=== PATIENT | female | born 1970 | race Caucasian/White ===

== ENCOUNTER 2019-09-17 12:15 | Outpatient (CLI) | payer BC, SELFPAY ==
[2019-09-17 13:48] LABS: Basophils Absolute Auto 0.1 K/mm3 (0.0-0.1); Basophils Percent Auto 1.1 % (0.2-1.2); Eosinophils Absolute Auto 0.3 K/mm3 (0-0.3); Eosinophils Percent Auto 5.6 % (0-4.4); Hematocrit 37.7 % (37.0-47.0); Hemoglobin 12.4 g/dL (12.0-15.0); Immature Granulocyte Absolute 0.01 K/mm3 (0.00-0.031); Immature Granulocyte Percent A 0.2 % (0-0.5); Lymphocytes Absolute Auto 1.71 K/mm3 (0.9-3.2); Lymphocytes Percent Auto 38.3 % (18.3-44.2); Mean Corpuscular HGB Conc 32.9 g/dl (32-36); Mean Corpuscular Hemoglobin 31.7 pg (26-34); Mean Corpuscular Volume 96.4 fl (80-100); Mean Platelet Volume 9.7 fl (7.4-10.4); Monocytes Absolute Auto 0.4 K/mm3 (0.1-0.6); Monocytes Percent Auto 8.3 % (2.6-8.5); Neutrophils Absolute Auto 2.1 K/mm3 (1.3-6.7); Neutrophils Percent Auto 46.5 % (45.5-73.1); Platelet Count Result 268 k/mm3 (150-375); Red Blood Count 3.91 M/mm3 (4.2-5.4); Red Cell Distribution Width 12.7 % (11.5-14.5); White Blood Count 4.5 K/mm3 (4.5-10.0)
[2019-09-17 14:06] LABS: Alanine Aminotransferase 18 U/L (4-35); Albumin Level 4.1 g/dL (3.5-5.1); Alkaline Phosphatase 50 U/L (38-126); Aspartate Amino Transferase 26 U/L (14-36); Bilirubin,Total 0.4 mg/dL (0.2-1.3); Blood Urea Nitrogen 12 mg/dL (7-17); Calcium 8.7 mg/dL (8.4-10.2); Carbon Dioxide 27 mmol/L (22-30); Chloride 106 mmol/L (98-107); Cholesterol 182 mg/dL (0-200); Estimated Glomerular Filt Rate > 60; Glucose 98 mg/dL (65-105); HDL Direct 77 mg/dL; Potassium 3.9 mmol/L (3.4-5.0); Sodium 138 mmol/L (137-145); Triglycerides 46 mg/dL (<150)
[2019-09-17 14:19] LABS: LDL Cholesterol Direct 76 mg/dL
[2019-09-17 14:47] LABS: Free T4 Free Thyroxine 0.86 ng/mL (0.78-2.19)
[2019-09-17 15:13] LABS: Folic Acid 11.6 ng/mL (2.76->20)
[2019-09-20 04:24] LABS: Triiodothyronine T3 Free 2.8 pg/mL (2.3-4.2)
[2019-09-21 04:24] LABS: Thyroglobulin 6.8 ng/mL (2.8-40.9); Thyroglobulin Antibodies <1 IU/mL (<=1)
== END 2019-09-17 12:16 | disposition home or self-care (01) ==
PROVIDERS: PCP Internal Medicine; Visit Provider Internal Medicine
DX: R53.83 Other fatigue (principal); E03.9 Hypothyroidism, unspecified
CPT/HCPCS: 36415; 80053; 80061; 82607; 82746; 84432; 84439; 84443; 84481; 85025; 86800

== ENCOUNTER 2020-05-27 10:57 | Outpatient (CLI) | payer BC, SELFPAY ==
--- NOTE | ~2020-05-27 | XR_ITS ---
XR shoulder RT min 2V DATE: 05/27/2020 13:38 INDICATION: Right shoulder pain TECHNIQUE: 4 views COMPARISON: 06/23/2010 right shoulder FINDINGS: An approximately 8 mm sclerotic opacity of the right scapula near the base of the acromion process may be a bone island. No other osteosclerotic lesions are identified. Normal alignment at the acromioclavicular and glenohumeral joints. No fracture or dislocation, perios teal reaction or bone destruction or abnormal soft tissue calcification. IMPRESSION: 8 mm sclerotic opacity of scapula near base of acromion, possibly a bone island. If furth er evaluation is desired, consider CT evaluation and/or bone scan. Reviewed, dictated and finalized at location A. DESIGN ENGINEER IMPRESSION: 8 mm sclerotic opacity of scapula near base of acromion, possibly a bone island. If further evaluation is desired, consider CT evaluation and/or b one scan.
--- NOTE | ~2020-05-27 | XR_ITS ---
EXAMINATION: XR_CERV2-3V_CR DATE: 05/27/2020 13:38 INDICATION: Neck pain. TECHNIQUE: 3 views of cervical spine were obtained. COMPARISON: Cervical spine radiographs 06/23/2010 FINDINGS: There is kyphosis of cervical spine. Vertebral body heights are normal. There is mildly dec reased disc height at C5-C6. The facet joints are unremarkable. No central canal stenosis or preverte bral soft tissue swelling. IMPRESSION: 1. Mild cervical spondylosis. Reviewed, dictated and finalized at location A. ING COORDINATOR
== END 2020-05-27 10:58 | disposition home or self-care (01) ==
PROVIDERS: PCP Internal Medicine; Visit Provider Internal Medicine
DX: M25.511 Pain in right shoulder (principal); M54.2 Cervicalgia; M47.812 Spondylosis without myelopathy or radiculopathy, cervical region; M89.9 Disorder of bone, unspecified
CPT/HCPCS: 72040; 73030

== ENCOUNTER 2020-06-22 11:11 | Outpatient (CLI) | payer BC, SELFPAY ==
--- NOTE | ~2020-06-22 | XR_ITS ---
EXAMINATION: XR lg joint inject/asp w image DATE: 06/22/2020 11:51 INDICATION: Right frozen shoulder with pain and decreased range of motion TECHNIQUE: A time-out was performed to verify the patient's name, date of , and procedure to b e performed. The procedure including the risks, benefits, and alternatives was discussed with the pat ient. Risks discussed included bleeding and infection. The patient understood the risks and agreed to proceed. The skin overlying the rotator cuff interval of the right glenohumeral joint was prepped a nd draped in usual sterile fashion. Anesthetic was administered with 1% lidocaine subcutaneously. A 22 G needle was advanced under fluoroscopic guidance into the joint. Injection of 0.3 mL of Omnipaq ue 240 confirmed intra-articular position of the needle. Subsequently, injectate consisting of 5 mm of a 4:1 mixture of 1% lidocaine: 80 mg/mL Depo-Medrol for a total dose of 80 mg Depo-Medrol was inst illed. Washout of contrast was seen confirming intra-articular administration. The needle was removed and the entry site was cleaned and dressed. There were no immediate complications. Fluoroscopy expo sure time was 0.1 minutes. The total number of images was 1. FINDINGS: Real-time fluoroscopy demonstrates the needle in the right glenohumeral joint. Patient's pa in prior to procedure:09/09. Patient's pain following the procedure: 09/09. IMPRESSION: 1. Successful right glenohumeral joint injection of local anesthetic and steroid with no change in th e patient's presenting pain. Reviewed, dictated and finalized at location A. IMPRESSION: 1. Successful right glenohumeral joint injection of local anesthetic and steroi d with no change in the patient's presenting pain.
== END 2020-06-22 11:12 | disposition home or self-care (01) ==
PROVIDERS: PCP Internal Medicine; Visit Provider Orthopaedic Surgery
DX: M75.01 Adhesive capsulitis of right shoulder (principal)
CPT/HCPCS: 20610; 77002; J1040; Q9966

== ENCOUNTER 2020-06-24 14:45 | Outpatient (CLI) | payer BC, SELFPAY ==
--- NOTE | ~2020-06-24 | MM_ITS ---
EXAMINATION: MM screening [facility] BI w wendy HISTORY: Screening mammogram TECHNIQUE: Craniocaudal and mediolateral oblique 3-D tomosynthesis images were obtained and synthetic 2-D images were generated. CAD analysis was submitted and interpreted. COMPARISON: 07/16/2017, 03/01/2012 bilateral digital screening mammogram examinations BREAST PARENCHYMAL COMPOSITION: There are scattered areas of fibroglandular density. FINDINGS: There is a focal 4 mm asymmetry in the mid to upper outer left breast. Diagnostic left mamm ogram and left breast ultrasound examination are recommended. Otherwise there is no evidence of suspicious mass, calcification, or architectural distortion to sugg est malignancy in either breast. There has been no other suspicious interval change. IMPRESSION: 1. New asymmetric opacity in the mid to upper outer left breast 2. Diagnostic left mammogram and left breast ultrasound examination are recommended. BI-RADS Category 0: Incomplete: Needs additional imaging evaluation. Reviewed, dictated and finalized at location A. IMPRESSION: 1. New asymmetric opacity in the mid to upper outer left breast 2. Diagnostic left mammogram and left breast ultrasound examination are recomme nded. BI-RADS Category 0: Incomplete: Needs additional imaging evaluation.
== END 2020-06-24 14:46 | disposition home or self-care (01) ==
PROVIDERS: PCP Internal Medicine; Visit Provider Obstetrics & Gynecology
DX: Z12.31 Encounter for screening mammogram for malignant neoplasm of breast (principal); R92.8 Other abnormal and inconclusive findings on diagnostic imaging of breast
CPT/HCPCS: 77063; 77067

== ENCOUNTER 2020-07-23 11:00 | Outpatient (CLI) | payer BC, SELFPAY ==
--- NOTE | ~2020-07-23 | MMUS_ITS ---
EXAMINATION: MM diagnostic mammo unilat LT, US breast LT limited HISTORY: Left breast mass on screening mammogram TECHNIQUE: Additional 3-D tomosynthesis images of the left breast were performed and synthetic 2-D im ages were generated. CAD analysis was submitted and interpreted. High resolution limited left breast ultrasound was performed. COMPARISON: 06/24/2020, 07/16/2017, 03/01/2012 FINDINGS: MAMMOGRAPHIC FINDINGS: There is a 5 mm round, obscured, equal density mass in the middle/posterior third of the outer breast at the 3:00 location 7 cm from the nipple. No suspicious calcification or architectural distortion a re identified. ULTRASOUND: There is an 8 mm x 4 mm complex cystic and solid mass with posterior acoustic enhancement and no inte rnal vascularity at the 4:00 location 2 cm from the nipple likely reflect a cluster of microcysts. Th ere is an adjacent 5 mm x 3 mm hypoechoic mass with posterior acoustic enhancement, lobulated margins , and no internal vascularity. IMPRESSION: 1. Likely clustered microcysts and possible adjacent intramammary lymph node at the 4:00 location 2 c m from the nipple. 2. Recommend 6 month follow-up left diagnostic mammogram and ultrasound. BI-RADS category 3, probably benign findings. Reviewed, dictated and finalized at location A. IMPRESSION: 1. Likely clustered microcysts and possible adjacent intramammary lymph node at the 4:00 location 2 cm from the nipple. 2. Recommend 6 month follow-up left diagnostic mammogram and ultrasound. BI-RADS category 3, probably benign findings.
== END 2020-07-23 11:01 | disposition home or self-care (01) ==
LOC: ANHIMG 11:04
PROVIDERS: PCP Internal Medicine; Visit Provider Obstetrics & Gynecology
DX: R92.8 Other abnormal and inconclusive findings on diagnostic imaging of breast (principal)
CPT/HCPCS: 76642; 77065

== ENCOUNTER → 2021-04-06 15:23 | Outpatient (CLI) | payer BC, SELFPAY ==
--- NOTE | ~2021-04-06 | MR_ITS ---
EXAMINATION: MR shoulder RT wo con DATE: 04/06/2021 16:17 INDICATION: Right shoulder pain. TECHNIQUE: Magnetic resonance imaging (MRI) of the right shoulder was performed without intravenous c ontrast. Sequences included axial PD-weighted FS FSE, coronal oblique PD-weighted FS FSE and T2-weigh becky FS FSE, and sagittal oblique T2-weighted FS FSE and T1-weighted FSE. COMPARISON: Right shoulder radiographs 05/27/2020 FINDINGS: Coracoacromial arch: The acromion undersurface is curved in morphology (type II). There is mild acromial joint osteoarthri tis. There is mild subacromial/subdeltoid bursitis. Rotator cuff: There is mild supraspinatus and infraspinatus tendinopathy. Teres minor tendon is normal. Subscapular is tendon is normal. No tear. There is no asymmetric fatty atrophy of the rotator cuff muscle bellies . Biceps tendon and glenoid labrum: Biceps tendon is in bicipital groove. Intra-articular biceps tendon is normal. There is degeneration of glenoid labrum without well-defined tear. Fluid: There is a small glenohumeral joint effusion. Bones/cartilage: There is cartilage surface irregularity of glenoid and humeral head. IMPRESSION: 1. Mild rotator cuff tendinopathy. No tear. 2. Mild glenohumeral joint chondrosis. 3. Mild acromioclavicular joint osteoarthritis. 4. Mild subacromial/subdeltoid bursitis. 5. Small glenohumeral joint effusion. Reviewed, dictated and finalized at location A. TOR OPERATOR HELPER
== END ==
PROVIDERS: PCP Internal Medicine; Visit Provider Orthopaedic Surgery
DX: M25.511 Pain in right shoulder (principal); M75.102 Unspecified rotator cuff tear or rupture of left shoulder, not specified as traumatic; M94.8X1 Other specified disorders of cartilage, shoulder; M19.011 Primary osteoarthritis, right shoulder; M75.51 Bursitis of right shoulder; M25.411 Effusion, right shoulder
CPT/HCPCS: 73221

== ENCOUNTER 2021-04-15 10:12 | Outpatient (CLI) | payer BC, SELFPAY ==
--- NOTE | ~2021-04-15 | XR_ITS ---
EXAMINATION: XR lg joint inject/asp w image DATE: 04/15/2021 10:54 INDICATION: Recurrent right frozen shoulder TECHNIQUE: A time-out was performed to verify the patient's name, date of , and procedure to b e performed. The procedure including the risks, benefits, and alternatives was discussed with the pat ient. Risks discussed included bleeding and infection. The patient understood the risks and agreed to proceed. The skin overlying the rotator cuff interval of the right glenohumeral joint was prepped a nd draped in usual sterile fashion. Anesthetic was administered with 1% lidocaine subcutaneously. A 22 G needle was advanced under fluoroscopic guidance into the joint. Injection of 1 mL of Omnipaque 240 confirmed intra-articular position of the needle. Subsequently, injectate consisting of 5 mL of a 3:2 mixture of 1% lidocaine: 40 mg/mL Depo-Medrol for a total dose of 80 mg Depo-Medrol was instil led. Washout of contrast was seen confirming intra-articular administration. The needle was removed a nd the entry site was cleaned and dressed. There were no immediate complications. Fluoroscopy exposu re time was 0.1 minutes. The total number of images was 2. FINDINGS: Real-time fluoroscopy demonstrates the needle in the right glenohumeral joint. Patient's pa in prior to procedure:09/09. Patient's pain following the procedure: 11/09. IMPRESSION: 1. Right glenohumeral joint injection of local anesthetic and steroid with slight increase in the pat ient's presenting pain. Reviewed, dictated and finalized at location A. F PAYROLL CLERK IMPRESSION: 1. Right glenohumeral joint injection of local anesthetic and steroid with slig ht increase in the patient's presenting pain.
== END 2021-04-15 10:13 | disposition home or self-care (01) ==
LOC: ANHIMG 10:13
PROVIDERS: PCP Internal Medicine; Visit Provider Orthopaedic Surgery
DX: M75.01 Adhesive capsulitis of right shoulder (principal)
CPT/HCPCS: 20610; 77002; J1030; Q9966

== ENCOUNTER 2021-04-15 12:07 | Outpatient (CLI) | payer BC, SELFPAY ==
--- NOTE | ~2021-04-15 | US_ITS ---
Please refer to diagnostic mammogram report dated 04/15/2021 for details. Reviewed, dictated and finalized at location A. CH/LANGUAGE THERAPIST
--- NOTE | ~2021-04-15 | MM_ITS ---
EXAMINATION: MM diagnostic remi LT w wendy: High-resolution Limited left breast ultrasound HISTORY: Follow-up left breast mass. TECHNIQUE: Additional 3-D tomosynthesis images of the left breast were performed and synthetic 2-D im ages were generated. CAD analysis was submitted and interpreted. High resolution Limited left breast ultrasound was performed. COMPARISON: Comparison to multiple prior studies sequentially, with oldest reviewed study dated 02/02. BREAST PARENCHYMAL COMPOSITION: The breasts are heterogenously dense, which may obscure small masses. FINDINGS: MAMMOGRAPHIC FINDINGS: The left breast is stable without evidence for malignancy. ULTRASOUND: Limited left breast ultrasound: At 4:00, 2 cm from the nipple there is a cluster of cysts measuring u p to 8 mm in aggregate. There is an adjacent oval hypoechoic mass with echogenic hilum measuring 8 mm maximum dimension, likely benign intramammary lymph node. IMPRESSION: 1. Stable likely benign left breast mass at 4:00, 2 cm from the nipple. 2. Recommend 6 month follow-up left breast ultrasound and bilateral mammogram BI-RADS category 3, probably benign findings. Reviewed, dictated and finalized at location A. RAL MAGISTRATE
== END 2021-04-15 12:08 | disposition home or self-care (01) ==
LOC: ANHIMG 12:08
PROVIDERS: PCP Internal Medicine; Visit Provider Obstetrics & Gynecology
DX: R92.8 Other abnormal and inconclusive findings on diagnostic imaging of breast (principal)
CPT/HCPCS: 76642; 77061; 77065; G0279

== ENCOUNTER 2021-09-14 16:30 | Outpatient (CLI) | payer BC, SELFPAY ==
[2021-09-14 16:47] LABS: Hematocrit 39.9 % (37.0-47.0); Hemoglobin 12.8 g/dL (12.0-15.0); Mean Corpuscular HGB Conc 32.1 g/dl (32-36); Mean Corpuscular Hemoglobin 31.6 pg (26-34); Mean Corpuscular Volume 98.5 fl (80-100); Mean Platelet Volume 8.7 fl (7.4-10.4); Platelet Count Result 329 k/mm3 (150-375); Red Blood Count 4.05 M/mm3 (4.2-5.4); Red Cell Distribution Width 12.9 % (11.5-14.5); White Blood Count 8.2 K/mm3 (4.5-10.0)
[2021-09-14 17:10] LABS: Erythrocyte Sedimentation Rate 15 mm/hr (0-20)
[2021-09-14 17:17] LABS: Alanine Aminotransferase 16 U/L (6-35); Albumin Level 4.4 g/dL (3.5-5.1); Alkaline Phosphatase 56 U/L (38-126); Anion Gap 4 mmol/L (8-16); Aspartate Amino Transferase 23 U/L (14-36); Bilirubin,Total 0.2 mg/dL (0.2-1.3); Blood Urea Nitrogen 13 mg/dL (7-17); CRP 0.6 mg/dL (<1.0); Calcium 8.4 mg/dL (8.4-10.2); Carbon Dioxide 28 mmol/L (22-30); Chloride 104 mmol/L (98-107); Estimated Glomerular Filt Rate > 60; Glucose 88 mg/dL (65-110); Potassium 3.9 mmol/L (3.4-5.0); Sodium 136 mmol/L (137-145)
== END 2021-09-14 16:31 | disposition home or self-care (01) ==
LOC: ANHLAB 16:32
PROVIDERS: PCP Internal Medicine; Visit Provider Nurse Practitioner
DX: K51.90 Ulcerative colitis, unspecified, without complications (principal)
CPT/HCPCS: 36415; 80053; 85027; 85652; 86140

== ENCOUNTER 2021-09-23 01:02 | Day surgery (SDC) | payer BC, SELFPAY ==
[2021-09-16 14:37] VITALS: BMI 27.8
--- NOTE | 2021-09-22 10:21 | P.PNAN_ITS ---
Anes - Initial Pre Proc Eval Procedure: Operation Date: 09/23/21 08:00 Proposed Procedures p Colonoscopy - Nathen Hoyt MD Date/Time: 09/22/21 10:21 Surgeon: Nathen Hoyt MD Pre Op Diagnosis: ulcerative colitis, proctitis Patient Data Age: 50 Gender: F Height: 1.73 m Weight: 83 kg Allergies Allergy/AdvReac Type Severity Reaction Status Date / Time prochlorperazine Allergy Unknown ANXIETY, Verified 09/23/21 06:46 JITTERY FEELING SEVERE Home Medications Medication Instructions Recorded Confirmed Type cyclobenzaprine 10 mg tablet 10 mg PO QHS PRN muscle spasm #30 01/06/21 09/23/21 Rx tabs thyroid (pork) 30 mg tablet 30 mg PO DAILY #30 tabs 04/08/21 09/23/21 Rx ([place] Thyroid) hydrocortisone acetate 25 mg 25 mg RECTAL QHS 30 days #30 ea 09/14/21 09/23/21 Rx rectal suppository (Anusol-HC) mesalamine 1.2 gram tablet,delayed 4.8 g PO DAILY #120 tabs 09/14/21 09/23/21 Rx release (Lialda) estradiol-norethindrone acet 1 1 tablet PO HS 09/16/21 09/23/21 History mg-0.5 mg tablet sodium sul 1.479 gram-potas ch See Rx Instructions PO PER PKG DIR 09/16/21 09/23/21 Rx 0.188 gram-magnes sul 0.225 gram #24 tabs tablet (Sutab) Patient hx anesthesia problems: none Family hx anesthesia problems: none Results Review: All pre-operative results and documents have been reviewed as part of the pre- operative evaluation. [facility] Past Medical History Medical History (Updated 09/22/21 @ 10:22 by Song Duque DO) Hypothyroidism Ulcerative colitis Surgical History Surgical History (Updated 09/22/21 @ 10:22 by Song Duque DO) History of bilateral tubal ligation History of tubal ligation Family History Family History Mother Patient's mother is in good health Father Patient's father is Other Diabetes mellitus Social History Social History Smoking status: Never smoker Alcohol intake: current Drinks per week: 1 Living arrangements: alone Anes - Eval Final PreProcedure Day of Procedure 09/22/21 10:21 Patient weight: overweight Heart: regular rate and rhythm Lungs: clear to auscultation Airway: Mallampati scale class II Neurological: alert and oriented Last oral intake: >/= 8 hours ASA classification: II Emergent: no Anesthetic plan: proceed Anesthesia type and monitoring: general GIVS and standard monitoring Results Review: All pre-operative results and documents have been reviewed as part of the pre- operative evaluation. Informed Consent: The patient's anesthetic plan and its attendant risks and benefits were discussed with the patient/family/POA. Questions were solicited and answers provided to the satisfaction of the patient/family/POA.
--- NOTE | 2021-09-22 13:15 | PM.HPGS ---
History of Present Illness History of Present Illness Consent: Risks, benefits, and alternatives have been discussed and questions answered. Patient agrees to proceed with procedure. Chief complaint: ulcerative colitis, proctitis Narrative: Leydi Noyola is a 50 year old female who has a ?past medical history ulcerative proctitis, hypothyroidism and tubal ligation.? Diagnosed with ulcerative proctitis originally seen on endoscopy ..? Most recent colonoscopy in 2019 Which I performed showed severe proctitis and biopsy showed diffuse chronic active inflammation with crypt abscesses and was indefinite for dysplasia due to inflammation (recs reviewed).? She was treated with Canasa suppository that helped somewhat. Never has been on oral therapy or biologics. She states over the last 4-5 months she has been having a severe bilateral lower abdominal bloating, lower abdominal cramping with pain, alternating bowel habits between constipation and severe diarrhea.? Constipation is usually associated with rectal bleeding and mucus.? She also reports rectal pressure and incomplete emptying.? She typically has diarrhea 5 times per week usually in the morning that is liquid and will go 3-4 times.? She does report nausea but no vomiting. Review of Systems Review of Systems: All systems reviewed & are unremarkable except as noted in HPI and below PMFSH Past Medical History Medical History Hypothyroidism Ulcerative colitis Surgical History Surgical History History of bilateral tubal ligation History of tubal ligation Family History Family History Mother Patient's mother is in good health Father Patient's father is Other Diabetes mellitus Social History Social History Smoking status: Never smoker Alcohol intake: current Drinks per week: 1 Living arrangements: alone Meds Home Medications and Allergies Home Medications Medication Instructions Recorded Confirmed Type cyclobenzaprine 10 mg tablet 10 mg PO QHS PRN muscle spasm #30 01/06/21 09/23/21 Rx tabs thyroid (pork) 30 mg tablet 30 mg PO DAILY #30 tabs 04/08/21 09/23/21 Rx ([place] Thyroid) hydrocortisone acetate 25 mg 25 mg RECTAL QHS 30 days #30 ea 09/14/21 09/23/21 Rx rectal suppository (Anusol-HC) mesalamine 1.2 gram tablet,delayed 4.8 g PO DAILY #120 tabs 09/14/21 09/23/21 Rx release (Lialda) estradiol-norethindrone acet 1 1 tablet PO HS 09/16/21 09/23/21 History mg-0.5 mg tablet sodium sul 1.479 gram-potas ch See Rx Instructions PO PER PKG DIR 09/16/21 09/23/21 Rx 0.188 gram-magnes sul 0.225 gram #24 tabs tablet (Sutab) Allergies Allergy/AdvReac Type Severity Reaction Status Date / Time prochlorperazine Allergy Unknown ANXIETY, Verified 09/23/21 06:46 JITTERY FEELING SEVERE Exam Resp: Auscultation: clear to auscultation bilaterally Cardio: Rate: regular rate Rhythm: regular rhythm GI: GI Palp: Yes Soft to palpation and No Tenderness to palpation present (GI) Assessment and Plan Assessment and plan (1) Ulcerative colitis: Code(s): K51.90 - Ulcerative colitis, unspecified, without complications Status: Acute Assessment and Plan: Colonoscopy with possible biopsy or polypectomy or cautery or injection of substances.
[2021-09-23 06:48] VITALS: BP 104/49; PULSE 73; RESP 16; O2SAT 98
[2021-09-23] MEDS: LACTATED RINGERS 1,000 ML 150 ML IV CONT (07:01)
[2021-09-23 08:14] VITALS: BP 88/48; PULSE 68; RESP 16; O2SAT 99
[2021-09-23 08:24] VITALS: BP 93/52; PULSE 70; RESP 20; O2SAT 99
[2021-09-23 08:34] VITALS: BP 112/61; PULSE 66; RESP 20; O2SAT 100
== END 2021-09-23 08:48 | disposition home or self-care (01) ==
PROVIDERS: PCP Internal Medicine; Visit Provider Internal Medicine Gastroenterology
PROC: 0DJD8ZZ Inspection of Lower Intestinal Tract, Via Natural or Artificial Opening Endoscopic (ICD-10-PCS; CPT 45378; principal; 2021-09-23 08:00)
DX: K51.20 Ulcerative (chronic) proctitis without complications (principal); K62.89 Other specified diseases of anus and rectum; E03.9 Hypothyroidism, unspecified
CPT/HCPCS: 45380; 88305; J2704; J7120

== ENCOUNTER 2021-12-01 16:11 | Outpatient (CLI) | payer BC, SELFPAY ==
[2021-12-13 08:39] LABS: Gliadin AB, IgG <1.0; TTG IGA AB <1.0
== END 2021-12-01 16:12 | disposition home or self-care (01) ==
LOC: ANHLAB 16:12
PROVIDERS: PCP Internal Medicine; Visit Provider Nurse Practitioner
DX: K51.90 Ulcerative colitis, unspecified, without complications (principal); R10.31 Right lower quadrant pain; R10.32 Left lower quadrant pain; R14.0 Abdominal distension (gaseous); R19.8 Other specified symptoms and signs involving the digestive system and abdomen
CPT/HCPCS: 36415; 83516; 86255

== ENCOUNTER → 2021-12-20 14:08 | Outpatient (CLI) | payer BC, SELFPAY ==
--- NOTE | ~2021-12-20 | US_ITS ---
EXAMINATION: US pelvic complete DATE: 12/20/2021 14:33 INDICATION: Pelvic pain. Incomplete bladder emptying. Comparison:Ultrasound dated 05/31/2016 TECHNIQUE: Multiple transabdominal sonographic images of the pelvis performed. FINDINGS: The uterus measures 7.2 x 2.1 x 3.7 cm. The endometrial complex measures 5 mm. There is a n abothian cysts. The right ovary measures 2.2 x 1.3 x 2 cm and the left ovary measures 2.8 x 1.9 x 1.6 cm. There are small follicles in each ovary. Normal doppler signal in both ovaries. Bladder wall is unremarkable. Prevoid volume is 6 91 cc. Postvoid volume is 24 cc. There is no free fluid in the pelvis. There are no abnormal masses seen on either side. IMPRESSION: 1. Small post void residual. Otherwise, unremarkable pelvic ultrasound. Reviewed, dictated and finalized at location A.
== END ==
PROVIDERS: PCP Obstetrics & Gynecology; Visit Provider Obstetrics & Gynecology
DX: R10.2 Pelvic and perineal pain (principal); N92.6 Irregular menstruation, unspecified
CPT/HCPCS: 76856

== ENCOUNTER 2022-01-25 16:26 | Outpatient (CLI) | payer BC, SELFPAY ==
[2022-01-25 17:27] LABS: Hemoglobin 13.4 g/dL (12.0-15.0); Mean Corpuscular HGB Conc 32.7 g/dl (32-36); Mean Corpuscular Hemoglobin 32.3 pg (26-34); Mean Corpuscular Volume 98.8 fl (80-100); Mean Platelet Volume 9.6 fl (7.4-10.4); Platelet Count Result 339 k/mm3 (150-375); Red Blood Count 4.15 M/mm3 (4.2-5.4); White Blood Count 7.4 K/mm3 (4.5-10.0)
[2022-01-25 17:36] LABS: Alanine Aminotransferase 18 U/L (6-35); Albumin Level 4.6 g/dL (3.5-5.1); Alkaline Phosphatase 54 U/L (38-126); Anion Gap 12 mmol/L (8-16); Aspartate Amino Transferase 25 U/L (14-36); Bilirubin,Total 0.2 mg/dL (0.2-1.3); Blood Urea Nitrogen 12 mg/dL (7-17); Calcium 8.8 mg/dL (8.4-10.2); Carbon Dioxide 27 mmol/L (22-30); Chloride 101 mmol/L (98-107); Estimated Glomerular Filt Rate > 60; Glucose 99 mg/dL (65-110); Potassium 3.7 mmol/L (3.4-5.0); Sodium 140 mmol/L (137-145)
[2022-01-25 18:22] LABS: Hepatitis B Surface Antigen Negative (Negative)
[2022-01-25 18:28] LABS: HAV RESULT Negative (Negative); Hepatitis B Core IgM Result Negative (Negative)
[2022-01-25 18:39] LABS: Hepatitis C Virus Antibody Negative (Negative)
[2022-01-27 14:57] LABS: NIL 0.02 IU/mL; Quantiferon TB Plus, 1T NEGATIVE (NEGATIVE); TB2-NIL 0.01 IU/mL
[2022-01-29 18:42] LABS: Hepatitis A Antibody Total Nonreactive (Nonreactive); Hepatitis B Core Ab Total Nonreactive (Nonreactive)
== END 2022-01-25 16:27 | disposition home or self-care (01) ==
LOC: ANHLAB 16:28
PROVIDERS: PCP Obstetrics & Gynecology; Visit Provider Nurse Practitioner Family
DX: K51.20 Ulcerative (chronic) proctitis without complications (principal)
CPT/HCPCS: 36415; 80053; 80074; 85027; 86480; 86704; 86708

== ENCOUNTER 2023-01-08 16:49 | Outpatient (CLI) | payer BC, SELFPAY ==
[2023-01-10 06:34] LABS: FSH 62.9 mIU/mL (***)
[2023-01-10 20:26] LABS: Sex Hormone Binding Globulin 60 nmol/L (17-124)
[2023-01-11 06:17] LABS: Progesterone 4.2 ng/mL (***)
[2023-01-11 14:50] LABS: Testosterone Free 11.5 pg/mL (0.1-6.4); Testosterone Total 140 ng/dL (2-45)
[2023-01-15 01:36] LABS: Estradiol, Ultrasensitive 42 pg/mL
== END 2023-01-08 16:50 | disposition home or self-care (01) ==
LOC: ANHLAB 16:51
PROVIDERS: PCP Internal Medicine; Visit Provider Chiropractor
DX: N95.1 Menopausal and female climacteric states (principal); N95.8 Other specified menopausal and perimenopausal disorders
CPT/HCPCS: 36415; 82670; 83001; 84144; 84270; 84402; 84403

== ENCOUNTER 2023-03-28 10:10 | Emergency (ER) | payer OTHER, SELFPAY ==
[2023-03-28 10:31] VITALS: BP 112/67; PULSE 100; RESP 16; TEMP 38.5; O2SAT 98
[2023-03-28 10:35] VITALS: BP 112/67; PULSE 100; RESP 16; TEMP 38.5; O2SAT 98
--- NOTE | 2023-03-28 11:02 | ED.URI ---
HPI - URI/Sore Throat General Chief Complaint: Upper Respiratory Infection Stated Complaint: COVID+ Time Seen by Provider: 03/28/23 11:02 Source: patient and RN notes reviewed Mode of arrival: ambulatory Limitations: no limitations History of Present Illness HPI Narrative: 52-year-old female presents with concern for fever, cough, general malaise that started overnight. She reports body aches, runny nose, congestion, fatigue. She reports she had COVID on 03/15 in her symptoms improved with that. She reports she has been under stress. MD elicited complaint: cough and sore throat Related Data Home Medications Medication Instructions Recorded Confirmed progesterone micronized 100 mg mg 03/28/23 capsule thyroid (pork) 30 mg tablet mg 03/28/23 ([place] Thyroid) Allergies Allergy/AdvReac Type Severity Reaction Status Date / Time prochlorperazine Allergy Unknown ANXIETY, Verified 12/06/22 15:48 JITTERY FEELING SEVERE Review of Systems Review of Systems: CONSTITUTIONAL: Reports malaise, fever. EYES: Denies visual changes, redness, or discharge. ENT: Reports rhinorrhea, congestion. Denies sinus pain, otalgia and sore throat. CARDIOVASCULAR: Denies chest pain, palpitations, or edema. RESPIRATORY: Reports cough. Denies dyspnea. GASTROINTESTINAL: Denies abdominal pain, nausea, vomiting, diarrhea SKIN: Denies rash or itching. MUSCULOSKELETAL: Reports myalgia. NEUROLOGIC: Reports headache. All systems reviewed & are unremarkable except as noted in HPI and below PMFSH Past Medical History Medical History (Updated 03/28/23 @ 11:30 by Martha Nuñez NP) Abdominal bloating Belching Hypothyroidism Obesity Small intestinal bacterial overgrowth (SIBO) Tenesmus (rectal) Ulcerative colitis Ulcerative proctitis Surgical History Surgical History History of bilateral tubal ligation History of tubal ligation Family History Family History Mother Patient's mother is in good health Father Patient's father is Other Diabetes mellitus Social History Social History Smoking status: Never smoker Alcohol intake: current Drinks per week: 1 Lack of Transportation: No Lack of Food: Never True Current Housing: I Have Housing Concerned About Future Housing: No Difficulty Paying Gas/Electric Bills: No Difficulty Paying for Meds: No Currently Unemployed: No Education: Associate Degree Difficulty w/ Childcare or Family Care: No Living arrangements: alone Comments At time of signature, agree with nursing past medical, surgical, social and family history. There is no relevant family history pertinent to the presenting complaint Exam Narrative: GENERAL: Nontoxic-appearing and in no acute distress. HEAD: Normocephalic EYES: PERRLA, conjunctivae clear ENT: Nares clear. Mucous membranes moist. TM pearly nam with sharp light reflex bilaterally; no tragal tenderness. Oropharynx not erythematous without lesions. Tonsils not enlarged and without exudate, no drooling, no hoarseness, no trismus, uvula midline. NECK: Supple. No lymphadenopathy CHEST: Clear to auscultation, breath sounds equal. No wheezing, rhonchi, rales, or stridor. No respiratory distress, speaks in full sentences. HEART: Regular rate and rhythm. No murmur heard. SKIN: Warm, dry, no rash. NEURO: Alert and oriented x3. PSYCH: Normal mood and affect Course Course Emergency Course: Patient is aware of diagnosis, understands and agrees to treatment plan. Anticipatory guidance given. Patient agrees to follow-up as directed and is aware of reasons to seek care at the emergency department. Portions of this record may have been created with voice recognition software Level of Care: Express Care Visit Vital Signs
== END 2023-03-28 11:39 | disposition home or self-care (01) ==
PROVIDERS: Emergency Provider Nurse Practitioner; PCP Internal Medicine
DX: J11.1 Influenza due to unidentified influenza virus with other respiratory manifestations (principal); E03.9 Hypothyroidism, unspecified
CPT/HCPCS: 87081; 87804; 87880; 99213; G0463

== ENCOUNTER 2023-06-06 15:25 | Outpatient (CLI) | payer OTHER, SELFPAY ==
[2023-06-06 16:12] LABS: Hematocrit 41.4 % (37.0-47.0); Hemoglobin 13.1 g/dL (12.0-15.0); Mean Corpuscular HGB Conc 31.6 g/dl (32-36); Mean Corpuscular Hemoglobin 31.4 pg (26-34); Mean Corpuscular Volume 99.3 fl (80-100); Mean Platelet Volume 9.4 fl (7.4-10.4); Platelet Count Result 344 k/mm3 (150-375); Red Blood Count 4.17 M/mm3 (4.2-5.4); Red Cell Distribution Width 13.9 % (11.5-14.5); White Blood Count 8.1 K/mm3 (4.5-10.0)
[2023-06-06 16:58] LABS: Alanine Aminotransferase 20 U/L (6-35); Albumin Level 4.2 g/dL (3.5-5.1); Alkaline Phosphatase 59 U/L (38-126); Anion Gap 4 mmol/L (8-16); Aspartate Amino Transferase 36 U/L (14-36); Bilirubin,Total 0.4 mg/dL (0.2-1.3); Blood Urea Nitrogen 16 mg/dL (7-17); CRP < 0.5 mg/dL (<1.0); Carbon Dioxide 30 mmol/L (22-30); Chloride 103 mmol/L (98-107); Estimated Glomerular Filt Rate > 60; Glucose 100 mg/dL (65-110); Potassium 3.8 mmol/L (3.4-5.0); Sodium 137 mmol/L (137-145)
[2023-06-06 17:30] LABS: Erythrocyte Sedimentation Rate 13 mm/hr (0-20)
== END 2023-06-06 15:26 | disposition home or self-care (01) ==
PROVIDERS: PCP Internal Medicine; Visit Provider Nurse Practitioner
DX: K51.20 Ulcerative (chronic) proctitis without complications (principal); R19.8 Other specified symptoms and signs involving the digestive system and abdomen; R14.0 Abdominal distension (gaseous); R19.5 Other fecal abnormalities
CPT/HCPCS: 36415; 80053; 85027; 85652; 86140

== ENCOUNTER 2023-07-04 00:36 | Day surgery (SDC) | payer OTHER, SELFPAY ==
[2023-06-22 13:19] VITALS: BMI 27.4
--- NOTE | 2023-07-02 13:14 | SUR.PREOP ---
Patient called regarding upcoming procedure. Reviewed preop instructions, appointment times, and procedure prep.
[2023-07-04 12:38] VITALS: BP 94/57; PULSE 73; RESP 16; TEMP 36.7; O2SAT 100; BMI 25.8
[2023-07-04] MEDS: LACTATED RINGERS 1,000 ML 150 ML IV CONT (13:05)
--- NOTE | 2023-07-04 14:03 | WPDHPUPDATE1 ---
History and Physical Update Update Date/Time: 07/04/23 14:03 History and Physical has been reviewed, including an updated exam of the patient. There are NO changes in the patient's condition. Risks, benefits, and alternatives have been discussed and questions answered. Patient agrees to proceed with procedure.
[2023-07-04 14:15] VITALS: BP 89/51; PULSE 51; RESP 16; O2SAT 100
[2023-07-04 14:25] VITALS: BP 90/50; PULSE 67; RESP 16; O2SAT 98
[2023-07-04 14:35] VITALS: BP 92/53; PULSE 57; RESP 15; O2SAT 100
--- NOTE | 2023-07-06 11:32 | WPDANESEPPF ---
Anes - Initial Pre Proc Eval Procedure: Operation Date: 07/04/23 14:00 Proposed Procedures p Colonoscopy - Cain Tracy MD Date/Time: 07/06/23 11:32 Surgeon: Cain Tracy MD Pre Op Diagnosis: Other fecal abnormalities, Ulcerative (chronic) p Patient Data Age: 52 Gender: F Height: 1.73 m Weight: 77.1 kg Last Vital Signs Temp 98.0 F 07/04/23 12:38 Pulse 57 L 07/04/23 14:35 Resp 15 07/04/23 14:35 BP 92/53 L 07/04/23 14:35 Pulse Ox 100 07/04/23 14:35 O2 Del Method Room Air 07/04/23 14:35 Allergies Allergy/AdvReac Type Severity Reaction Status Date / Time prochlorperazine Allergy Unknown ANXIETY, Verified 07/04/23 13:14 JITTERY FEELING SEVERE Home Medications Medication Instructions Recorded Confirmed Type progesterone micronized 100 mg 100 mg PO DAILY 03/28/23 07/04/23 History capsule thyroid (pork) 30 mg tablet 30 mg PO DAILY #30 tabs 05/07/23 07/04/23 Rx ([place] Thyroid) adalimumab 40 mg/0.4 mL See Rx Instructions subcut 06/06/23 07/04/23 Rx subcutaneous pen kit (Humira(CF) .COMPLEX #2 ea Pen) Patient hx anesthesia problems: none Family hx anesthesia problems: none Results Review: All pre-operative results and documents have been reviewed as part of the pre-operative evaluation. [facility] Past Medical History Medical History (Updated 06/06/23 @ 15:24 by Silke Aviles APRN) Abdominal bloating Belching Decreased stool caliber Hypothyroidism Obesity Small intestinal bacterial overgrowth (SIBO) Tenesmus (rectal) Ulcerative colitis Ulcerative proctitis Surgical History Surgical History History of bilateral tubal ligation History of tubal ligation Family History Family History Mother Patient's mother is in good health Father Patient's father is Other Diabetes mellitus Social History Social History Smoking status: Never smoker Alcohol intake: current Drinks per week: 2 Substance use: never Substance use type: does not use Lack of Transportation: No Lack of Food: Never True Current Housing: I Have Housing Concerned About Future Housing: No Difficulty Paying Gas/Electric Bills: No Difficulty Paying for Meds: No Currently Unemployed: No Education: Associate Degree Difficulty w/ Childcare or Family Care: No Living arrangements: alone Spiritual care concerns: No Anes - Eval Final PreProcedure Day of Procedure 07/06/23 11:32 Patient weight: normal Heart: regular rate and rhythm Lungs: clear to auscultation Airway: Mallampati scale class II Neurological: alert and oriented Last oral intake: >/= 8 hours ASA classification: II Emergent: no Anesthetic plan: proceed Anesthesia type and monitoring: general GIVS and standard monitoring Results Review: All pre-operative results and documents have been reviewed as part of the pre-operative evaluation. Informed Consent: The patient's anesthetic plan and its attendant risks and benefits were discussed with the patient/family/POA. Questions were solicited and answers provided to the satisfaction of the patient/family/POA.
== END 2023-07-04 14:50 | disposition home or self-care (01) ==
PROVIDERS: PCP Internal Medicine; Visit Provider Internal Medicine Gastroenterology
PROC: 0DJD8ZZ Inspection of Lower Intestinal Tract, Via Natural or Artificial Opening Endoscopic (ICD-10-PCS; CPT 45378; principal; 2023-07-04 14:00)
DX: K51.20 Ulcerative (chronic) proctitis without complications (principal); D12.0 Benign neoplasm of cecum; K64.8 Other hemorrhoids; E03.9 Hypothyroidism, unspecified; Z79.620 Long term (current) use of immunosuppressive biologic
CPT/HCPCS: 45385; 45380; 88305; 88312; J2704; J7120

== ENCOUNTER 2023-07-17 16:28 | Outpatient (CLI) | payer OTHER, SELFPAY ==
[2023-07-18 07:38] LABS: Progesterone 3.9 ng/mL
[2023-07-20 13:54] LABS: FSH 47.4 mIU/mL
[2023-07-22 14:38] LABS: Testosterone Free 8.3 pg/mL (0.1-6.4); Testosterone Total 108 ng/dL (2-45)
[2023-07-25 21:29] LABS: Estradiol, Ultrasensitive 40 pg/mL
== END 2023-07-17 16:29 | disposition home or self-care (01) ==
PROVIDERS: PCP Internal Medicine; Visit Provider Chiropractor
DX: N95.1 Menopausal and female climacteric states (principal); N95.8 Other specified menopausal and perimenopausal disorders
CPT/HCPCS: 36415; 82670; 83001; 84144; 84402; 84403

== ENCOUNTER 2023-11-08 16:52 | Outpatient (CLI) | payer OTHER, SELFPAY ==
[2023-11-09 06:53] LABS: Progesterone 1.4 ng/mL
[2023-11-10 11:44] LABS: FSH 21.1 mIU/mL
[2023-11-15 10:27] LABS: Testosterone Free 19.6 pg/mL (0.1-6.4); Testosterone Total 153 ng/dL (2-45)
[2023-11-19 23:48] LABS: Estradiol, Ultrasensitive 163 pg/mL
== END 2023-11-08 16:53 | disposition home or self-care (01) ==
LOC: ANHLAB 16:56
PROVIDERS: PCP Internal Medicine; Visit Provider Chiropractor
DX: N95.1 Menopausal and female climacteric states (principal); N95.8 Other specified menopausal and perimenopausal disorders
CPT/HCPCS: 36415; 82670; 83001; 84144; 84402; 84403

== ENCOUNTER 2024-03-05 09:42 | Emergency (ER) | payer OTHER, SELFPAY ==
[2024-03-05 09:53] VITALS: BP 123/56; PULSE 72; RESP 16; TEMP 37.2; O2SAT 100
[2024-03-05 09:55] VITALS: BP 123/56; PULSE 72; RESP 16; TEMP 37.2; O2SAT 100
--- NOTE | 2024-03-05 10:12 | ED.URI ---
HPI - URI/Sore Throat General Chief Complaint: Upper Respiratory Infection Stated Complaint: congestion/cough /chills Time Seen by Provider: 03/05/24 10:05 Source: patient, RN notes reviewed and old records reviewed Mode of arrival: ambulatory Limitations: no limitations History of Present Illness HPI Narrative: immunosuppressed patient presents with complaints of 3 weeks of cough. Cough is becoming productive, she is beginning to feel more tired. She reports lack of energy, subjective fever. she began treatment for community-acquired pneumonia yesterday. States that she began taking a Z-Zachary last night, is concerned that she is feeling worse instead of better. She does report cough is keeping her awake at night, intermittent wheezing, especially at night. She denies any shortness of breath. She has been taking Mucinex and Tylenol to treat her symptoms with minimal relief Related Data Home Medications Medication Instructions Recorded Confirmed progesterone micronized 100 mg 100 mg PO DAILY 03/28/23 03/05/24 capsule azithromycin 250 mg tablet See Rx Instructions .Route .COMPLEX 03/05/24 03/05/24 Allergies Allergy/AdvReac Type Severity Reaction Status Date / Time prochlorperazine AdvReac Intermediate ANXIETY, Verified 03/05/24 09:54 JITTERY FEELING SEVERE Review of Systems Review of Systems: All systems reviewed & are unremarkable except as noted in HPI and below Constitutional: Constitutional: Reports as per HPI, Reports no additional constitutional complaints, Reports daytime sleepiness, Reports fever(s), Reports headache(s) and Reports lethargy ENT: Reports system reviewed and no additional complaints, except as documented and Reports nasal congestion Cardiovascular: Cardiovascular: Reports no additional cardiovascular complaints Respiratory: Respiratory: Reports as per HPI, Reports no additional respiratory complaints, Reports change in phlegm color, Reports chest congestion, Reports cough, Reports excessive phlegm production and Reports wheezing Gastrointestinal: Gastrointestinal: Reports no additional gastrointestinal complaints PMFSH Past Medical History Medical History Abdominal bloating Belching Decreased stool caliber Hypothyroidism Obesity Small intestinal bacterial overgrowth (SIBO) Tenesmus (rectal) Ulcerative colitis Ulcerative proctitis Surgical History Surgical History History of bilateral tubal ligation History of tubal ligation Family History Family History Mother Patient's mother is in good health Father Patient's father is Other Diabetes mellitus Social History Social History Smoking status: Never smoker Alcohol intake: current Drinks per week: 2 Substance use: never Substance use type: does not use Lack of Transportation: No Lack of Food: Never True Current Housing: I Have Housing Concerned About Future Housing: No Difficulty Paying Gas/Electric Bills: No Difficulty Paying for Meds: No Currently Unemployed: No Education: Associate Degree Difficulty w/ Childcare or Family Care: No Living arrangements: alone Spiritual care concerns: No Comments At the time of my signature, I reviewed and agree with the nursing past medical, surgical, social, and family history. There is no relevant family history pertinent to the patient complaint. Exam Const: General: cooperative, no acute distress, alert, awake, tired appearing and uncomfortable Orientation/consciousness: oriented to person, oriented to place and oriented to time HENMT: Head: normal to inspection Resp: Effort & Inspection: normal respiratory effort and able to speak in complete sentences Auscultation: crackles on the right in the upper lung nation, no rales, no rhonchi and no wheezes Cardio: Palpation: normal PMI Rate: regular rate Rhythm: regular rhythm Heart sounds: S1 normal heart sound present and S2 normal heart sound present Neuro: General: oriented to person, oriented to place and oriented to time Cranial nerves: Yes CN's II-XII intact bilaterally Psych: Appearance: grossly normal Thought process: Normal thought process present Insight: Good insight present (Psych) Judgement: Good judgement present (Psych) Course Course Level of Care: Express Care Visit Vital Signs Vital signs: Vital Signs Temperature 99.0 F 03/05/24 09:53 Pulse Rate 72 03/05/24 09:53 Respiratory Rate 16 03/05/24 09:53 Blood Pressure 123/56 L 03/05/24 09:53 Pulse Oximetry 100 03/05/24 09:53 Oxygen Delivery Room Air 03/05/24 09:53 Temperature 99.0 F 03/05/24 09:55 Pulse Rate 72 03/05/24 09:55 Respiratory Rate 16 03/05/24 09:55 Blood Pressure 123/56 L 03/05/24 09:55 Pulse Oximetry 100 03/05/24 09:55 Oxygen Delivery Room Air 03/05/24 09:55 Reviewed MDM - URI/Sore Throat MDM Narrative Medical decision making narrative: given prevalence of community-acquired pneumonia and patient's presenting symptoms agree that she needs to be treated for this. She started Z-Zachary, given immunosuppressed status added Augmentin to this. She could also benefit from a steroid burst and an inhaler, these were prescribed. Patient directed follow with primary care provider, emergency department for new or worse symptoms. Discharge instructions reviewed with patient, as well as provided in writing per nursing staff. The instructions also include specific and strict return/GO TO THE ER as well as f/u information. All questions have been answered, and the patient deny any further questions with discharge and discharge plan. Some parts of this dictation were generated by voice recognition software and may contain typographical and/or grammatical inaccuracies. Differential Diagnosis Differential diagnosis: Likely upper respiratory infection, viral infection and bronchitis Medical Records Attestation: I reviewed the patient's medical records. Discharge Plan Discharge Clinical Impression: Pneumonia Qualifiers: Pneumonia type: due to unspecified organism Laterality: unspecified laterality Lung location: unspecified part of lung Qualified Code(s): J18.9 - Pneumonia, unspecified organism Patient Disposition: Home, Self-Care Condition: Stable Instructions: Antibiotic Form Additional Instructions: Take medications as prescribed. Follow with primary care provider. Emergency department for new or worse symptoms Patient Language: Upper Sorbian Prescriptions: New amoxicillin-pot clavulanate 875-125 mg tablet 1 tablet PO Q12H Qty: 20 0RF prednisone 50 mg tablet 50 mg PO DAILY Qty: 5 0RF albuterol sulfate [Ventolin HFA] 90 mcg/actuation HFA aerosol inhaler 2 puff inhalation QID PRN (Reason: shortness of breath or wheezing) Qty: 8.5 0RF fluconazole [Diflucan] 200 mg tablet 200 mg PO DAILY Qty: 2 0RF Rx Instructions: take 1 tablet by mouth at onset of symptoms. May repeat does in 48-72 hours if symptoms do not subside No Action azithromycin 250 mg tablet See Rx Instructions .ROUTE .COMPLEX Rx Instructions: prescribed z-pac 03/04/24 progesterone micronized 100 mg capsule 100 mg PO DAILY Humira(CF) Pen 40 mg/0.4 mL pen injector kit See Rx Instructions subcut .COMPLEX Qty: 2 11RF Rx Instructions: inject one - 40 mg/0.4 mL pen every 2 weeks subcut [place] Thyroid 30 mg tablet 30 mg PO DAILY Qty: 30 5RF Follow-up/Referrals: PHYSICIAN,HUMAN RELATIONS TEACHER [Primary Care Provider] - Stand Alone Forms: Work/School Release IP Time of Disposition: 10:16
== END 2024-03-05 10:19 | disposition home or self-care (01) ==
PROVIDERS: Emergency Provider Nurse Practitioner Family
DX: J18.9 Pneumonia, unspecified organism (principal); E03.9 Hypothyroidism, unspecified; E66.9 Obesity, unspecified
CPT/HCPCS: 99213; G0463

== ENCOUNTER 2024-04-10 15:14 | Outpatient (CLI) | payer OTHER, SELFPAY ==
--- NOTE | ~2024-04-10 | MM_ITS ---
EXAMINATION: MM screening remi BI w wendy HISTORY: Screening TECHNIQUE: Craniocaudal and mediolateral oblique 3-D tomosynthesis images were obtained and synthetic 2-D images were generated. CAD analysis was submitted and interpreted. COMPARISON: Comparison to multiple prior studies sequentially, with oldest reviewed study dated 07/16. BREAST PARENCHYMAL COMPOSITION: Not dense: There are scattered areas of fibroglandular density. FINDINGS: There is no evidence of suspicious mass, calcification, or architectural distortion to sugg est malignancy in either breast. There has been no suspicious interval change. IMPRESSION: 1. No mammographic evidence of malignancy. 2. Recommend routine screening mammography in one year. BI-RADS Category 1: Negative Reviewed, dictated and finalized at location B. 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
== END 2024-04-10 15:15 | disposition home or self-care (01) ==
PROVIDERS: Visit Provider Obstetrics & Gynecology
DX: Z12.31 Encounter for screening mammogram for malignant neoplasm of breast (principal)
CPT/HCPCS: 77063; 77067

== ENCOUNTER 2024-04-21 08:50 | Emergency (ER) | payer OTHER, SELFPAY ==
--- NOTE | 2024-04-21 08:51 | ED_ITS ---
HPI - URI/Sore Throat General Chief Complaint: Upper Respiratory Infection Stated Complaint: cough,congestion,and fatigue Time Seen by Provider: 04/21/24 08:51 Source: patient Mode of arrival: ambulatory Limitations: no limitations History of Present Illness HPI Narrative: Leydi is a 53-year-old immunocompromised female patient presenting to the clinic today with complaints of cough, congestion, and fatigue x5 days. She denies any fevers, chills, or body aches. Does have a productive cough with some yellow phlegm, nasal congestion, and reporting fatigue. History of ulcerative colitis and she takes Humira. 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 Denies any chest pain or shortness of breath. MD elicited complaint: cough, nasal congestion and other (Chest congestion, fatigue) Related Data Home Medications ?Medication ?Instructions ?Recorded ?Confirmed ?Last Taken ?Type progesterone micronized 100 mg 100 mg PO DAILY 03/28/23 03/05/24 Unknown History capsule Allergies Allergy/AdvReac Type Severity Reaction Status Date / Time prochlorperazine AdvReac Intermediate ANXIETY, Verified 04/21/24 08:52 JITTERY FEELING SEVERE Review of Systems Review of Systems: Pertinent positives per HPI. Patient denies any fever, chills, rash, headache, visual changes, dizziness, shortness of breath, chest pain, palpitations, nausea, vomiting, diarrhea, constipation, abdominal pain, or any urinary issues. [facility] Past Medical History Medical History Decreased stool caliber Tenesmus (rectal) Obesity Belching Abdominal bloating Ulcerative proctitis Small intestinal bacterial overgrowth (SIBO) Hypothyroidism Ulcerative colitis Surgical History Surgical History History of tubal ligation History of bilateral tubal ligation Family History Family History Mother Patient's mother is in good health Father Patient's father is Other Diabetes mellitus Social History Social History Smoking status: Never smoker Alcohol intake: current Drinks per week: 2 Substance use: never Substance use type: does not use Lack of Transportation: No Lack of Food: Never True Current Housing: I Have Housing Concerned About Future Housing: No Difficulty Paying Gas/Electric Bills: No Difficulty Paying for Meds: No Currently Unemployed: No Education: Associate Degree Difficulty w/ Childcare or Family Care: No Living arrangements: alone Spiritual care concerns: No Comments At the time of my signature, I reviewed and agree with the nursing past medical, surgical, social, and family history. There is no relevant family history pertinent to the patient complaint. Exam Narrative: General: Well-developed, well nourished, in no apparent distress Head: Normocephalic, atraumatic Eyes: Pupils equally round and reactive to light bilaterally, EOM intact, sclera and conjunctive clear, no discharge, lids normal Ears: TMs intact and congested, ear canals clear, no drainage, grossly hearing normal. Nose: Nares patent, clear nasal discharge, no inflammation, no sinus tenderness. Mouth: Oral pharynx red without lesions or masses, good dentition, MMM. Postnasal drip Neck: Supple, trachea midline, no enlargement of anterior or posterior cervical nodes, no thyroid masses or goiter palpable. Cardio: Regular rate and rhythm, s1 and s2 normal, no murmur appreciated. Resp: Diminished in the bases otherwise clear, no rhonchi, rales, wheezing or rubs Course Course Emergency Course: Portions of this record may have been created with voice recognition software. Level of Care: Express Care Visit Vital Signs Vital signs: Vital Signs Temperature 36.6 C 04/21/24 08:56 Pulse Rate 70 04/21/24 08:56 Respiratory Rate 04/21/24 08:56 Blood Pressure 108/55 L 04/21/24 08:56 Pulse Oximetry 100 04/21/24 08:56 Oxygen Delivery Room Air 04/21/24 08:56 Temperature 36.6 C 04/21/24 08:56 Pulse Rate 70 04/21/24 08:56 Respiratory Rate 20 04/21/24 08:56 Blood Pressure 108/55 L 04/21/24 08:56 Pulse Oximetry 100 04/21/24 08:56 Oxygen Delivery Room Air 04/21/24 08:56 Vital signs reviewed MDM - URI/Sore Throat MDM Narrative Medical decision making narrative: At the time of visit patient is resting comfortably on the exam table. Patient appears to be nontoxic. Labs: COVID and influenza testing was performed and negative in the clinic today. Plan: I suspect patient has URI with cough and congestion. Due to patient's immunocompromised state I will place her on azithromycin as well as prednisone and albuterol inhaler. Supportive measures were discussed with the patient and they voiced understanding discharge instructions and agrees to treatment plan. Return precautions reviewed Differential Diagnosis Differential diagnosis: Likely upper respiratory infection, otitis media, sinusitis, viral infection, bronchitis, influenza, pharyngitis and other (COVID) Discharge Plan Discharge Clinical Impression: URI with cough and congestion Patient Disposition: Home, Self-Care Condition: Stable Instructions: Antibiotic Form, Upper Respiratory Infection (ED) Additional Instructions: COVID and influenza testing was negative in the clinic today. Take prescription medications only as prescribed-prednisone, azithromycin, and albuterol inhaler Increase fluids and stay well hydrated Tylenol/motrin for pain/fever Flonase and OTC antihistamines as directed Vicks vapor rub to open sinuses Sinus rinses for congestion Cepacol spray, cough drops, throat lozenges, warm tea with honey/lemon, gargle salt water to soothe throat BRAT diet for diarrhea Clear liquids x 24 hours then advance as tolerated for nausea/vomiting Go to the ED if you develop a worsening in your condition- high fever not controlled by Tylenol or Motrin, dehydration, weakness, lethargy, shortness of breath, or chest pain. Follow up with your PCP in 3-5 days if symptoms persist. Patient Language: [place] Prescriptions: New azithromycin 250 mg tablet See Rx Instructions .ROUTE .COMPLEX Qty: 6 0RF Rx Instructions: For 250 mg dose pack: take 500 mg today (day 1), then 250 mg for 4 days (days 2-5) albuterol sulfate 90 mcg/actuation HFA aerosol inhaler 2 puff inhalation Q4-6H PRN (Reason: shortness of breath or wheezing) 30 Days Qty: 8.5 0RF prednisone 50 mg tablet 50 mg PO DAILY 5 Days Qty: 5 0RF No Action progesterone micronized 100 mg capsule 100 mg PO DAILY Humira(CF) Pen 40 mg/0.4 mL pen injector kit See Rx Instructions subcut .COMPLEX Qty: 2 11RF Rx Instructions: inject one - 40 mg/0.4 mL pen every 2 weeks subcut [place] Thyroid 30 mg tablet 30 mg PO DAILY Qty: 30 5RF Follow-up/Referrals: PHYSICIAN,SEASONING MIXER [Primary Care Provider] - Quality NIHSS Nursing Documentation ED NIHSS nursing documentation: reviewed/agree
[2024-04-21 08:56] VITALS: BP 108/55; PULSE 70; RESP 20; TEMP 36.6; O2SAT 100
[2024-04-21 09:22] LABS: EDCOVIDSCREEN Negative (Negative); EDINFLUASCREEN Negative (Negative); EDINFLUBSCREEN Negative (Negative)
== END 2024-04-21 09:22 | disposition home or self-care (01) ==
PROVIDERS: Emergency Provider Nurse Practitioner Family; Referring Provider Emergency Medicine
DX: J06.9 Acute upper respiratory infection, unspecified (principal); Z20.822 Contact with and (suspected) exposure to COVID-19; R05.9 Cough, unspecified; E03.9 Hypothyroidism, unspecified; E66.9 Obesity, unspecified
CPT/HCPCS: 87426; 87804; 99213; G0463

== ENCOUNTER 2024-09-02 16:34 | Outpatient (CLI) | payer OTHER, SELFPAY ==
[2024-09-03 16:39] LABS: FSH 39.1 mIU/mL
[2024-09-03 20:48] LABS: Sex Hormone Binding Globulin 56 nmol/L (17-124)
== END 2024-09-02 16:35 | disposition home or self-care (01) ==
LOC: ANHLAB 16:38
PROVIDERS: PCP Family Medicine; Visit Provider Chiropractor
DX: N95.1 Menopausal and female climacteric states (principal); N95.8 Other specified menopausal and perimenopausal disorders
CPT/HCPCS: 36415; 82670; 83001; 84144; 84270; 84402; 84403

== ENCOUNTER 2024-11-18 16:24 | Outpatient (CLI) | payer OTHER, SELFPAY ==
[2024-11-18 18:14] LABS: Free T3 4.39 pg/mL (2.71-6.16); Free T4 Free Thyroxine 0.85 ng/dL (0.78-2.19)
[2024-11-18 19:47] LABS: Thyroid Stimulating Hormone 1.330 uIU/mL (0.465-4.680)
[2024-11-20 12:08] LABS: FSH 30.4 mIU/mL (.)
[2024-11-25 22:07] LABS: Estradiol, Sensitive 41.9 pg/mL (.)
[2024-11-26 02:07] LABS: Free Testosterone (Direct) 1.3 pg/mL (0.0-4.2)
== END 2024-11-18 16:25 | disposition home or self-care (01) ==
LOC: ANHLAB 16:30
PROVIDERS: PCP Family Medicine; Visit Provider Chiropractor
DX: N95.8 Other specified menopausal and perimenopausal disorders (principal); E03.8 Other specified hypothyroidism; E06.3 Autoimmune thyroiditis
CPT/HCPCS: 36415; 82670; 83001; 84144; 84270; 84402; 84403; 84439; 84443; 84481

== ENCOUNTER 2025-03-02 12:51 | Outpatient (CLI) | payer OTHER, SELFPAY ==
--- NOTE | ~2025-03-02 | XR_ITS ---
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 Findings: No acute fracture or malalignment. No significant degenerative changes. Soft tissues unremarkable. Impression: No acute fracture or malalignment. Reviewed, dictated and finalized at location P. R OPERATOR AUTOMATIC Impression: No acute fracture or malalignment.
== END 2025-03-02 12:52 | disposition home or self-care (01) ==
PROVIDERS: PCP Family Medicine; Visit Provider Physician Assistant Surgical
DX: M25.531 Pain in right wrist (principal)
CPT/HCPCS: 73110